=== PATIENT | female | born 1960 | race Native Hawaiian/Other Pacific Islander ===

== ENCOUNTER 2020-06-29 06:46 | Outpatient (CLI) | payer OTHER ==
[~2020-06-29 06:46] MED LIST: BENZONATATE200 MG PO; CEFTIN250 MG OR; ESTR1.254 PO; LEVO0.0723 PO; LIOTHYRONINE5 MCG OR; NAPROSYN500 MG PO
[2020-06-29 07:13] LABS: PLATELET COUNT 206 K/uL (152-353)
[2020-06-29 08:37] LABS: POTASSIUM 4.1 mmol/L (3.6-5.2)
== END 2020-06-29 21:05 | disposition home or self-care (01) ==
LOC: LAB 06:46
PROVIDERS: ATTEND Internal Medicine Rheumatology
DX: M25.50 Pain in unspecified joint (principal)
CPT/HCPCS: 36415; 80053; 84443; 85027; 85652; 86140